=== PATIENT | male | born 1990 | race African-American/Black ===

== ENCOUNTER 2018-06-05 15:34 | Emergency (ER) | payer OTHER ==
[2018-06-05 15:44] VITALS: BP 136/79; PULSE 104; TEMP 99.1; BMI 32.8
--- NOTE | 2018-06-05 16:22 | PDOC ---
History of Present Illness - General Chief Complaint: Ear Problem Stated Complaint: EAR PROBLEM Time Seen by Provider: 06/05/18 15:53 History Source: Patient Exam Limitations: No Limitations - History of Present Illness Initial Comments: 06/05/18 16:41 Pt is a 27 y/o M who presents to the ED for feeling like he has "clogged ears". Past History - Past Medical History Allergies/Adverse Reactions: Allergies Allergy/AdvReac Type Severity Reaction Status Date / Time No Known Allergies Allergy Verified 06/05/18 15:40 Home Medications: Ambulatory Orders Fluticasone Prop 0.05% Nasal [Flonase -] 1 - 2 spray NS DAILY #1 spray.pump COPD: No - Suicide/Smoking/Psychosocial Hx Smoking History: Never smoked Hx Alcohol Use: No Drug/Substance Use Hx: No *Physical Exam - Vital Signs Last Vital Signs Temp Pulse Resp BP Pulse Ox 99.1 F 104 H 20 136/79 98 06/05/18 15:40 06/05/18 15:40 06/05/18 15:40 06/05/18 15:40 06/05/18 15:40 *DC/Admit/Observation/Transfer Diagnosis at time of Disposition: Sinus congestion - Discharge Dispostion Disposition: HOME Condition at time of disposition: Stable Decision to Admit order: No - Prescriptions Prescriptions: Fluticasone Prop 0.05% Nasal [Flonase -] 1 - 2 spray NS DAILY #1 spray.pump - Referrals Referrals: Vinayak Rios MD [Staff Physician] - - Patient Instructions Printed Discharge Instructions: DI for Nasal Congestion Additional Instructions: You have nasal congestion which is causing your ears to feel clogged Please use the nose spray twice a day in each nostril Follow up with ENT next week Return to the ED for any new or worsening symptoms - Post Discharge Activity
== END 2018-06-05 16:35 | disposition home or self-care (01) ==
LOC: JERFT 15:34
DX: J34.89 Other specified disorders of nose and nasal sinuses (principal)
CPT/HCPCS: 99281-25

== ENCOUNTER 2019-03-15 18:49 | Emergency (ER) | payer OTHER | END 2019-03-15 20:20 | disposition home or self-care (01) | LOC: JERFT 18:49 ==

== ENCOUNTER 2023-11-28 17:44 | Emergency (ER) | payer OTHER ==
[2023-11-28 17:49] VITALS: BP 134/89; PULSE 71; RESP 16; TEMP 98.9; BMI 32.8
[2023-11-28] MEDS ORDERED: ACETAMINOPHEN WITH CODEINE 300MG/30MG TABLET ONE (18:10)
[2023-11-28] MEDS ORDERED: AMOX TR/POT CLAV 500MG/125MG TABLETS (FP) ONE (18:10)
[2023-11-28] MEDS ORDERED: AMOXICILLIN 500 MG CAPSULE (FP) ONE (18:12)
[2023-11-28] MEDS: ACETAMINOPHEN WITH CODEINE 300MG/30MG TABLET PO ONE (18:16)
[2023-11-28] MEDS: AMOXICILLIN 500 MG CAPSULE (FP) PO ONE (18:16)
== END 2023-11-28 18:31 | disposition home or self-care (01) ==
LOC: JERFT 17:44
DX: K08.89 Other specified disorders of teeth and supporting structures (principal)
CPT/HCPCS: 99283-25